=== PATIENT | male | born 1975 | race Two or more races ===

== ENCOUNTER → 2023-10-09 10:58 | Outpatient (BNVA) | payer OTHER, SELFPAY | PROVIDERS: PCP Family Medicine; Visit Provider Urology ==

== ENCOUNTER 2023-11-25 12:47 | Outpatient (AMB) | payer OTHER, SELFPAY ==
--- NOTE | 2023-11-25 13:15 | A.OFFVIS_ITS ---
Intake Visit Reasons: low libito Intake Note: New patient is present for Low Libido/Low Testosterone Urology Medication: Testosterone Injection Patient's Testosterone level from Feb 2023 was 598 and level had dropped to 333 in June 2023 Patient has low hematocrit level Patient was referred by a good friend and would like to discuss further options in Testosterone Therapy Hand Tapper Required: No Accompanied by: Self / Same As Patient Allergies No Known Allergies Allergy (Verified 11/25/23 13:21) HPI Comments Details: Claudette is a pleasant male. He is a patient of to [facility]. He seen for the following urologic conditions - hypogonadism Hypogonadism Variable testosterone Ranging from 300-500 Discussed options for testosterone booster Trial enclomiphene [facility] Medical History Low libido Low testosterone Review of Systems Const Denies chills and Denies fever(s) Card Reports no additional complaints and Denies syncope Resp Denies cough GI Denies abdominal pain and Denies heartburn Reports as per HPI and Denies change in libido Neuro Denies syncope Psych Denies change in libido Endo Denies change in libido Physical Exam Const General: cooperative, healthy appearing, comfortable and no acute distress Orientation/consciousness: patient oriented x3 HEENT Face and sinus: Yes normal facial exam Mouth: moist mucous membranes Neck Neck: Yes normal visual inspection, Yes full ROM and Yes trachea midline Chest Chest palpation & inspection: normal inspection of the chest Resp Effort & Inspection: normal respiratory effort, able to speak in complete sentences and no respiratory distress GI Inspection: Yes normal to inspection Back/Spine/Pelvis Cervical Spine: normal cervical lordosis Thoracic/Lumbar Spine: thoracic and lumbar spine normal to inspection Skin General skin exam: no rashes or lesions noted Neuro General: patient oriented x3, gait normal, tone normal and moves all extremities Extrem General: Yes normal to inspection and Yes capillary refill normal Assessment & Plan Assessment & Plan (1) Hypogonadism in male: Code(s): E29.1 - Testicular hypofunction Category: Medical Plan Trial pituitary stimulator Orders: Orders Testosterone, Free/Total 10 Weeks E29.1 - Testicular hypofunction Patient Instructions: Imaging studies, laboratory and physical exam results were discussed and reviewed in detail. No major barriers to patient understanding were identified. An opportunity to ask questions regarding the treatment plan was provided. All questions were answered. The patient expressed understanding and agreement with the above treatment plan. The patient is aware they should contact our office by phone for worsening of their current condition or the appearance of new urologic symptoms. Compliance is encouraged with any medications and followup testing that is ordered. It is a privilege to participate in the urologic care of your patient. If you have any questions or concerns regarding treatment for the above conditions, or other urologic issues, please do not hesitate to contact me. The office telephone contact is [phone]. This note is constructed using voice recognition software. While every effort has been made to ensure accuracy newspaper journalist errors may have been included. Yours sincerely, Dr Casa Upton MD, [facility] - Urology Providers of Expert, Compassionate Care for the Genitourinary System Coding Level of Care Code New Pt Level 4 (87288) Diagnoses Hypogonadism in male E29.1
== END 2023-11-25 14:16 | disposition home or self-care (01) ==
PROVIDERS: PCP Family Medicine; Visit Provider Urology
DX: E29.1 Testicular hypofunction (principal)
CPT/HCPCS: 99204

== ENCOUNTER → 2023-11-25 12:47 | Outpatient (BNVA) | payer OTHER, SELFPAY | PROVIDERS: PCP Family Medicine; Visit Provider Urology ==